=== PATIENT | female | born 1935 | race Caucasian/White ===

== ENCOUNTER 2016-12-14 15:26 | Emergency (ER) | payer MEDICARE, OTHER ==
[2016-12-14] MEDS ORDERED: diphenhydrAMINE HCl 50 MG/ML 1 ML VIAL ONE (15:50)
[2016-12-14] MEDS ORDERED: methylPREDNISolone Acetate 40 mg/ml Vial ONE (15:50)
== END 2016-12-14 16:26 | disposition home or self-care (01) ==
LOC: BURERS 15:26
DX: L25.9 Unspecified contact dermatitis, unspecified cause (principal); I50.9 Heart failure, unspecified; J45.909 Unspecified asthma, uncomplicated; J44.9 Chronic obstructive pulmonary disease, unspecified; E11.9 Type 2 diabetes mellitus without complications; E78.5 Hyperlipidemia, unspecified; I10 Essential (primary) hypertension; F32.9 Major depressive disorder, single episode, unspecified; Z79.899 Other long term (current) drug therapy
CPT/HCPCS: 96372; J1030; J1200

== ENCOUNTER 2017-03-10 19:59 | Emergency (ER) | payer MEDICARE, OTHER ==
[2017-03-10 20:48] LABS: #Basophils 0.1 thou/uL (0.0-0.2); #Eosinphils 0.1 thou/uL (0.0-0.7); #Lymphocytes 2.1 thou/uL (1.20-3.40); #Monocytes 0.6 thou/uL (0.11-0.59); #Neutrophils 5.2 thou/uL (1.40-6.50); %Basophils 0.9 % (0.0-1.0); %Eosinophils 1.8 % (0.0-10.0); %Lymphocytes 26.2 % (21.0-51.0); %Monocytes 7.5 % (0.0-10.0); %Neutrophils 63.5 % (42.0-75.0); Hemoglobin 13.8 g/dL (12.0-16.0); Mean Corpuscular HGB CONC 35.1 g/dL (32.0-36.0); Mean Corpuscular Hemoglobin 30.6 pg (27.0-31.0); Mean Corpuscular Volume 87.4 fl (81.0-99.0); Mean Platelet Volume 6.1 fL (7.4-10.4); Platelet Count 199 thou/uL (130-400); RBC Distribution Width 11.9 % (11.5-14.5); White Blood Cell (WBC) Count 8.1 thou/uL (4.8-10.8)
[2017-03-10 21:01] LABS: ALT (SGPT) 10 U/L (8-55); AST (SGOT) 13 U/L (5-34); Albumin 3.9 g/dL (3.4-4.8); Alkaline Phosphatase 94 U/L (40-150); Anion Gap 16 mmol/L (10-20); BUN (Urea Nitrogen) 5 mg/dL (9.8-20.1); Bilirubin, Total 0.4 mg/dL (0.2-1.2); Calc. Creatinine Clearance 0 mL/min (70-130); Calcium 9.4 mg/dL (7.8-10.44); Carbon Dioxide 23 mmol/L (23-31); Chloride 105 mmol/L (98-107); Estimated GFR-MDRD 76; Globulin 2.9 g/dL (2.4-3.5); Glucose 228 mg/dL (83-110); Potassium 4.1 mmol/L (3.5-5.1); Protein, Total 6.8 g/dL (6.0-8.3); Sodium 140 mmol/L (136-145)
[2017-03-10 21:02] LABS: CKMB 1.4 ng/mL (0-6.6); Troponin I Less than 0.010 ng/mL (< 0.028)
--- NOTE | 2017-03-10 22:39 | RAD ---
PORTABLE CHEST 03/10/17 An AP portable film at 2027 is compared with a 04/07/16 study. Slight elevation of the left hemidiaphragm and blunting of the left costophrenic angle is chronic an d unchanged. 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 The heart is mildly enlarged but there are no congestive f indings, large pleural effusions, or acute pulmonary infiltrates. IMPRESSION: Chronic changes but no acute findings. POS: HOME
[2017-03-10 23:30] LABS: Bilirubin Negative (Negative); Blood, Urine Small (Negative); Clarity Clear (Clear); Glucose, Urine (Dipstick) Negative (Negative); Leukocyte Trace (Negative); Nitrite Negative (Negative); Protein, Urine (Dipstick) Negative (Neg-Trace); Urobilinogen 0.2 mg/dL (0.2-1.0); pH, Urine 6.5 (5.0-9.0)
[2017-03-10 23:38] LABS: RBC/HPF 0-3 HPF (0-3); Squamous Epithelial 0-3 HPF (0-3); WBC/HPF 0-3 HPF (0-3)
[2017-03-10] MEDS ORDERED: Azithromycin 250 MG TAB ONE (23:45)
[2017-03-10] MEDS ORDERED: methylPREDNISolone Sod Succ/PF 125 MG/2 ML VIAL ONE (23:45)
[2017-03-10] MEDS ORDERED: cefTRIAXone\\ROCEPHIN 2 GM VIAL ONE (23:51)
[2017-03-10] MEDS ORDERED: Sodium Chloride 0.9% 100 ML ONE (23:51)
== END 2017-03-11 00:44 | disposition home or self-care (01) ==
LOC: BURERS 19:59
DX: J44.1 Chronic obstructive pulmonary disease with (acute) exacerbation (principal); E78.5 Hyperlipidemia, unspecified; I11.0 Hypertensive heart disease with heart failure; I50.9 Heart failure, unspecified; H35.30 Unspecified macular degeneration; E11.9 Type 2 diabetes mellitus without complications; Z79.899 Other long term (current) drug therapy; Z79.4 Long term (current) use of insulin
CPT/HCPCS: 51701; 71010; 80053; 81003; 81015; 82553; 83880; 84484; 85025; 87086; 94640; 94760; 96361; 96365; 96375; A4353; J0696; J2930; J7050; J7620

== ENCOUNTER 2018-06-15 09:27 | Outpatient (CLI) | payer MEDICARE, OTHER ==
--- NOTE | 2018-06-15 15:05 | RAD ---
CHEST TWO VIEWS: Date: 06-15-18 Comparison: 03-10-17 FINDINGS: The upper lobe vessels are mildly congested today compared to before. Elevation of the left hemidiaph ragm and lingular haziness are no different. There are no large effusions and there were no signs of a focal lobar pneumonia. A prior CABG is noted. The cardiac size is stable. IMPRESSION: Mild congestive change. Findings called to Christofer Farfan at 0958 on 06-15-18. POS: HOME
== END 2018-06-15 09:28 | disposition home or self-care (01) ==
LOC: BURRAD 09:27
PROVIDERS: ATTEND Physician Assistant
DX: R05 Cough (principal); J98.4 Other disorders of lung
CPT/HCPCS: 71046

== ENCOUNTER 2020-04-11 03:00 | Emergency (ER) | payer MEDICARE, OTHER ==
[2020-04-11] MEDS ORDERED: Acetaminophen 500 MG TAB ONE ×2 (03:42)
[2020-04-11] MEDS ORDERED: Bacitracin 1 PK ONE (03:51)
--- NOTE | 2020-04-11 09:42 | RAD ---
PORTABLE CHEST: DATE: 04/11/2020. FINDINGS: An AP portable film at 0333 is compared with prior studies from 2017 and 2018. Slight elevation of t he left hemidiaphragm is chronic in this patient. There is some scarring or streaking in the left co stophrenic angle which is probably old as well. No definite acute infiltrate was seen. The heart is normal in size. 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 There is no vascular congestion or edema. The medias tinum shows no widening or shift. The lungs are fully inflated. No gross acute fractures were seen, but subtle rib fractures would be easily missed in this patient. IMPRESSION: No definite acute findings. POS: HOME
--- NOTE | 2020-04-11 09:43 | RAD ---
LEFT KNEE 4 VIEWS: DATE: 04/11/2020. FINDINGS: A TOTAL KNEE ARTHROPLASTY IS IN PLACE. There is no sign of loosening or infection around the hardwar e. No acute fracture was visible and no joint effusion was seen. Dense arterial calcifications are present. IMPRESSION: No acute findings. POS: HOME
== END 2020-04-11 04:17 | disposition home or self-care (01) ==
LOC: BURERS 03:00
DX: S20.211A Contusion of right front wall of thorax, initial encounter (principal); S80.01XA Contusion of right knee, initial encounter; J45.909 Unspecified asthma, uncomplicated; I11.0 Hypertensive heart disease with heart failure; I50.9 Heart failure, unspecified; E78.5 Hyperlipidemia, unspecified; E11.9 Type 2 diabetes mellitus without complications; F32.9 Major depressive disorder, single episode, unspecified; Z79.4 Long term (current) use of insulin; Z79.01 Long term (current) use of anticoagulants; Z79.899 Other long term (current) drug therapy; W18.11XA Fall from or off toilet without subsequent striking against object, initial encounter
CPT/HCPCS: 71045

== ENCOUNTER 2020-12-13 13:23 | Emergency (ER) | payer MEDICARE, OTHER ==
[2020-12-13 13:49] LABS: #Eosinphils 0.1 thou/uL (0.0-0.7); #Lymphocytes 0.6 thou/uL (1.20-3.40); #Monocytes 0.8 thou/uL (0.11-0.59); #Neutrophils 9.4 thou/uL (1.40-6.50); %Basophils 0.3 % (0.0-1.0); %Eosinophils 0.5 % (0.0-10.0); %Lymphocytes 5.7 % (21.0-51.0); %Monocytes 7.1 % (0.0-10.0); %Neutrophils 86.4 % (42.0-75.0); Hemoglobin 13.2 g/dL (12.0-16.0); Mean Corpuscular HGB CONC 33.8 g/dL (32.0-36.0); Mean Corpuscular Hemoglobin 30.6 pg (27.0-31.0); Mean Corpuscular Volume 90.5 fL (78.0-98.0); Mean Platelet Volume 5.6 fL (7.4-10.4); Platelet Count 285 thou/uL (130-400); Red Blood Cell (RBC) Count 4.31 mill/uL (4.20-5.40); White Blood Cell (WBC) Count 10.9 thou/uL (4.8-10.8)
[2020-12-13 14:00] LABS: Bilirubin Negative (Negative); Blood, Urine Negative (Negative); Clarity Clear (Clear); Glucose, Urine (Dipstick) Negative (Negative); Ketone, Urine Negative (Negative); Leukocyte Negative (Negative); Nitrite Negative (Negative); Protein, Urine (Dipstick) Negative (Neg-Trace); Specific Gravity, Urine 1.015 (1.005-1.030); Urobilinogen 0.2 mg/dL (Less than 2)
[2020-12-13 14:08] LABS: ALT (SGPT) 25 U/L (8-55); AST (SGOT) 19 U/L (5-34); Albumin 3.8 g/dL (3.4-4.8); Alkaline Phosphatase 91 U/L (40-110); Anion Gap 16 mmol/L (10-20); BUN (Urea Nitrogen) 33 mg/dL (9.8-20.1); Bilirubin, Total 0.4 mg/dL (0.2-1.2); Calc. Creatinine Clearance 0 mL/min (70-130); Calcium 10.3 mg/dL (7.8-10.44); Carbon Dioxide 24 mmol/L (23-31); Chloride 97 mmol/L (98-107); Globulin 3.8 g/dL (2.4-3.5); Glucose 170 mg/dL (83-110); Potassium 4.3 mmol/L (3.5-5.1); Protein, Total 7.6 g/dL (5.8-8.1); Sodium 133 mmol/L (136-145)
[2020-12-13 14:20] LABS: Lipase Less than 4 U/L (8-78)
[2020-12-13] MEDS ORDERED: Neomycin-Polymyxin-Hc 7.5 ML BOT ONE (15:36)
[2020-12-13] MEDS ORDERED: methylPREDNISolone Sod Succ/PF 125 MG/2 ML VIAL ONE (15:40)
[2020-12-13] MEDS ORDERED: HYDROcodone/Acetaminophen 10/325 mg Tablet ONE (15:48)
[2020-12-13] MEDS ORDERED: HYDROcodone/Acetaminophen 5/325 mg Tablet ONE (15:51)
[2020-12-13] MEDS ORDERED: hydrOXYzine 25 MG TAB ONE (15:55)
[2020-12-13] MEDS ORDERED: Sodium Chloride 0.9% 100 ML ONE (16:30)
[2020-12-13] MEDS ORDERED: cefTRIAXone\\ROCEPHIN 1 GM VIAL ONE (16:30)
[2020-12-13 18:14] LABS: SARS-CoV-2 NAA Rapid Test Not Detected (NotDetected)
== END 2020-12-13 19:00 | disposition short-term general hospital (02) ==
LOC: BURERS 13:23
DX: J44.1 Chronic obstructive pulmonary disease with (acute) exacerbation (principal); I48.91 Unspecified atrial fibrillation; I11.0 Hypertensive heart disease with heart failure; I50.9 Heart failure, unspecified; E11.9 Type 2 diabetes mellitus without complications; E78.5 Hyperlipidemia, unspecified; Z20.822 Contact with and (suspected) exposure to COVID-19; Z79.899 Other long term (current) drug therapy; Z79.4 Long term (current) use of insulin; Z79.01 Long term (current) use of anticoagulants
CPT/HCPCS: 0240U; 71045; 80053; 81003; 83605; 83690; 83880; 84484; 85025; 85379; 87040; 87086; 93005; 94640; 94760; 36415; 51701; 96365; 96375; J0696; J2930; J3490; J7620